=== PATIENT | male | born 1930 | race Caucasian/White ===

== ENCOUNTER 2019-10-29 17:40 | Emergency (ER) | payer OTHER, MEDICAID ==
[~2019-10-29] VITALS: Ht 165.1 cm; Wt 78.9 kg
[2019-10-29 17:51] VITALS: BP 120/51; Ht 165.1 cm; Wt 78.9 kg
== END 2019-10-29 19:01 | disposition home or self-care (01) ==
LOC: ED 17:40
DX: H10.13 Acute atopic conjunctivitis, bilateral (principal); J04.0 Acute laryngitis; I10 Essential (primary) hypertension; Z95.0 Presence of cardiac pacemaker
CPT/HCPCS: J7512